=== PATIENT | female | born 1980 | race Caucasian/White ===

== ENCOUNTER 2024-04-13 21:36 | Emergency (ER) | payer MEDICAID, OTHER ==
[~2024-04-13] VITALS: Ht 162.6 cm; Wt 80.9 kg
[2024-04-13 21:50] VITALS: BP 186/104; PULSE 61; RESP 16; TEMP 97.9; O2SAT 99
== END 2024-04-14 02:18 | disposition left against medical advice (07) ==
LOC: EMS 21:36
DX: R51.9 Headache, unspecified (principal); I10 Essential (primary) hypertension; F17.210 Nicotine dependence, cigarettes, uncomplicated
CPT/HCPCS: 99283; Z7502